=== PATIENT | male | born 1995 | race Caucasian/White ===

== ENCOUNTER 2019-11-12 14:23 | Emergency (ER) | payer MEDICAID ==
[~2019-11-12] VITALS: Ht 177.8 cm; Wt 87.0 kg
[2019-11-12] MEDS ORDERED: TETRACAINE 0.5% OPHTH DROPS 4ML LEFTEYE ONE (14:45)
[2019-11-12] MEDS ORDERED: FLUORESCEIN SODIUM 1MG/STRIP LEFTEYE ONE (14:45)
[2019-11-12 18:22] VITALS: BP 142/78
== END 2019-11-12 18:24 | disposition home or self-care (01) ==
LOC: ER 14:35
DX: H10.89 Other conjunctivitis (principal); S05.92XA Unspecified injury of left eye and orbit, initial encounter; W45.0XXA Nail entering through skin, initial encounter; Y93.89 Activity, other specified; Y92.89 Other specified places as the place of occurrence of the external cause; Y99.8 Other external cause status
CPT/HCPCS: 70480; 99284; Z7610